=== PATIENT | male | born 1980 | race Caucasian/White ===

== ENCOUNTER 2016-06-21 15:43 | Emergency (ER) | payer OTHER ==
[2016-05-16 08:17] VITALS: BMI 23.4
[~2016-06-21 15:43] MED LIST: AMOXICILLIN500 M1; BIAXIN 500 MG500 MG PO; HYDROCODONE-APA1 TAB PO; MEDROL DOSE PACK4 MG PO; NAPROSYN500 MG PO; PREDNISONE20 MG PO; PREVACID30 MG PO; SKELAXIN800 MG PO; TYLENOL W/CODEI1 TAB PO
== END 2016-06-21 20:10 | disposition home or self-care (01) ==
LOC: D.ER 15:43
DX: K21.9 Gastro-esophageal reflux disease without esophagitis (principal)